=== PATIENT | female | born 1940 | race Caucasian/White ===

== ENCOUNTER 2018-09-17 09:18 | Observation (INO) | payer MEDICARE ==
[~2018-09-17] VITALS: Ht 165.1 cm; Wt 53.5 kg
[~2018-09-17 09:18] MED LIST: AMLO10TA6 PO; LISI-613 PO; SIMV40TA59 PO
[2018-09-17] MEDS ORDERED: METHYLPREDNISOLONE SOD SUCC 40MG/ML 1ML ONE (10:19)
[2018-09-17] MEDS ORDERED: FAMOTIDINE/PF 20 MG/2 ML VIAL IV ONE (10:20)
[2018-09-17 10:30] LABS: BASOPHILS % (AUTO) 0.6 % (0.0-5.0); EOSINOPHILS % (AUTO) 0.7 % (0.0-8.0); HEMATOCRIT 36.3 % (36-48); LYMPHOCYTES % (AUTO) 11.8 % (21.0-51.0); MEAN CORPUSCULAR HEMOGLOBIN 26.7 pg (27.0-33.0); MEAN CORPUSCULAR HGB CONC 32.8 g/dL (32.0-36.0); MEAN CORPUSCULAR VOLUME 81.6 fL (79-99); MONOCYTES % (AUTO) 7.7 % (3.0-13.0); NEUTROPHILS % (AUTO) 79.2 % (40.0-77.0); PLATELET COUNT (AUTO) 556 K/uL (130-400); RED BLOOD CELL COUNT(AUTO) 4.45 MIL/uL (4.00-5.50); RED CELL DISTRIBUTION WIDTH 15.3 % (11.0-15.5); WHITE BLOOD COUNT (AUTO) 9.8 K/uL (4.8-10.8)
[2018-09-17] MEDS: FAMOTIDINE/PF 20 MG/2 ML VIAL IV SCH (10:32)
[2018-09-17 10:41] LABS: CRP QUANTITATIVE 36.8 mg/L (0.00-9.0); POTASSIUM 4.1 mmol/L (3.5-5.1)
[2018-09-17] MEDS: DiphenhydrAMINE HCL 50 MG/ML VIAL IVP SCH ×2 (10:45→17:34)
[2018-09-17] MEDS: HYDROCORTISONE SOD SUCCINATE 250 MG/2 ML VIAL IVP SCH ×3 (14:00→23:34)
[2018-09-17] MEDS ORDERED: DiphenhydrAMINE HCL 50 MG/ML VIAL ONE (14:13)
[2018-09-17 16:00] VITALS: BP 134/74
[2018-09-17] MEDS ORDERED: ALBU0.63 IH (17:18)
[2018-09-17 19:05] VITALS: BP 124/70
[2018-09-17] MEDS ORDERED: ALBUTEROL SULFATE 0.083% 2.5 MG/3 ML INH IH PRN (19:15)
[2018-09-17] MEDS ORDERED: HYDROCORTISONE SOD SUCCINATE 100 MG/2 ML VIAL ONE ×2 (22:22→23:14)
[2018-09-17 23:00] VITALS: BP 121/68
[2018-09-18] MEDS: DiphenhydrAMINE HCL 50 MG/ML VIAL IVP SCH ×3 (03:23→18:50)
[2018-09-18 04:28] VITALS: BP 139/83
[2018-09-18 08:00] VITALS: BP 136/74
[2018-09-18] MEDS: HYDROCORTISONE SOD SUCCINATE 250 MG/2 ML VIAL IVP SCH ×3 (08:29→21:20)
[2018-09-18] MEDS: FAMOTIDINE/PF 20 MG/2 ML VIAL IV SCH (08:30)
[2018-09-18] MEDS ORDERED: SIMVASTATIN 20 MG TABLET PO SCH (09:00)
[2018-09-18] MEDS ORDERED: AMLODIPINE BESYLATE 5 MG TAB PO SCH (09:00)
[2018-09-18 11:00] VITALS: BP 108/63
[2018-09-18 16:00] VITALS: BP 121/62
[2018-09-18 19:40] VITALS: BP 124/69
[2018-09-18 23:59] VITALS: BP 138/74
[2018-09-19] MEDS: DiphenhydrAMINE HCL 50 MG/ML VIAL IVP SCH (03:42)
[2018-09-19 03:46] VITALS: BP 141/82
[2018-09-19] MEDS ORDERED: HYDROCORTISONE SOD SUCCINATE IVP SCH (06:52)
[2018-09-19] MEDS ORDERED: SODIUM CHLORIDE 0.9% IVP SCH (06:52)
[2018-09-19] MEDS ORDERED: COMPOUND IV REFRIGERATED 1 EACH IVSOLN MISC PRN (07:00)
[2018-09-19 08:00] VITALS: BP 154/85
== END 2018-09-19 08:30 | disposition home or self-care (01) ==
LOC: EDH 09:18 → EDHIP 10:15 → 4CH 15:53 → 4BH 18:37
PROVIDERS: ADMIT Internal Medicine; ATTEND Internal Medicine
DX: T78.3XXA Angioneurotic edema, initial encounter (principal); E78.5 Hyperlipidemia, unspecified; J44.9 Chronic obstructive pulmonary disease, unspecified; I12.9 Hypertensive chronic kidney disease with stage 1 through stage 4 chronic kidney disease, or unspecified chronic kidney disease; N18.3 Chronic kidney disease, stage 3 (moderate)
CPT/HCPCS: 36415; 80048; 85025; 86140; 94664; 96374; 96375; 96376 ×2; 99285; G0378 ×46; J1200 ×4; J1720 ×5; J2920; J3490 ×2